=== PATIENT | male | born 1990 ===

== ENCOUNTER 2024-12-16 11:49 | Emergency (ER) | payer OTHER, SELFPAY ==
[2024-12-16 11:54] VITALS: BP 155/85; BMI 36.5
[2024-12-16 12:00] VITALS: BP 136/72
[2024-12-16 12:18] LABS: % Basophils 0.3 % (0-2); % Eosinophils 0.1 % (0-6); % Immature Granulocytes 0.5 % (0-0.5); % Lymphocytes 6.8 % (20.5-51.1); % Monocytes 4.9 % (1.7-9.3); % Neutrophils 87.4 % (42.2-75.2); Absolute Basophils 0.1 10^3/uL (0-0.2); Absolute Immature Granulocytes 0.1 10^3/uL (0-0.05); Absolute Monocytes 0.7 10^3/uL (0.1-0.6); Absolute Neutrophils 13.1 10^3/uL (1.4-6.5); Hematocrit 40.3 % (39.0-52.0); Hemoglobin 14.4 g/dL (13.0-18.0); Mean Corp Hgb Conc. 35.7 g/dL (33.0-37.0); Mean Corpuscular Hgb 29.2 pg (27.0-31.0); Mean Corpuscular Volume 81.7 fL (80.0-94.0); Mean Platelet Volume 9.1 fL (7.4-10.4); Nucleated Red Blood Cells % 0 % (-); Platelet Count 256 10^3/uL (130-400); Red Blood Cell Count 4.93 10^6/uL (4.70-6.10); Red Cell Dist. Width 13.2 % (11.5-14.5)
[2024-12-16 12:28] LABS: ALT (SGPT) 33 U/L (0-50); AST (SGOT) 22 U/L (17-59); Albumin 4.4 g/dl (3.5-5.0); Alkaline Phosphatase 91 U/L (38-126); Blood Urea Nitrogen 11 mg/dl (9-20); Calcium 9.2 mg/dl (8.4-10.2); Carbon Dioxide 26 mmol/L (22-30); Chloride 100 mmol/L (98-107); Estimated Creatinine Clearance > 125 ml/min; Glucose 116 mg/dl (70-99); Lipase 25 U/L (23-300); Potassium 4.2 mmol/L (3.5-5.1); Sodium 137 mmol/L (135-145); Total Bilirubin 0.4 mg/dl (0.2-1.3); Total Protein 7.1 g/dl (6.3-8.2); eGFR > 60.00
[2024-12-16] MEDS: NSS 500 IV (12:35)
[2024-12-16] MEDS: TORADOL 30 MG IV (12:36)
[2024-12-16] MEDS: ZOFRAN 4 MG IV (12:37)
--- NOTE | 2024-12-16 13:34 | ED.GENMED ---
History of Present Illness
General
Chief Complaint: Abdominal Pain
Source: patient
Exam Limitations: none
Time Seen by Provider: 12/16/24 12:09
Nursing documentation reviewed up to this point in time: agreed with
History of Present Illness
History of Present Illness:
Patient presents to ED secondary to right-sided abdominal pain, radiating to his back, with vomiting episodes, shortly after waking up this morning. Abdominal pain described as sharp, without any alleviating or exacerbating factors. Denies trauma.
Denies difficulty with urination. Denies fever or chills. Denies previous history of similar symptoms. There is family history of kidney stones.
Review of Systems
Review of Systems
Allergies reviewed?: Yes
All Other Systems: ROS reviewed and negative except as documented in HPI and ROS
Constitutional: Reports no symptoms; Denies fever
EENT: Reports no symptoms
Respiratory: Reports no symptoms
Cardiac: Reports no symptoms
ABD/GI: Reports abdominal pain, nausea and vomiting; Denies diarrhea
: Reports no symptoms; Denies dysuria, flank pain or difficulty voiding
Musculoskeletal: Reports back pain
Skin: Reports no symptoms
Neurological: Reports no symptoms
Phy Exam
Physical Exam
Physical Exam:
Physical Exam
General: mild painful distress, not acutely ill. afebrile
Head: nc/at. eomi
Neck: supple. normal range of motion
Abdomen: normal bowel sounds. not tender.
Neuro: alert and oriented. no focal neurological deficits
Skin: no rash
Psychiatric: well kept. interactive and cooperative
Extremities: no edema. no calf tenderness.
Course
Orders/Labs/Results
Orders:
Orders
12/16/24 11:59
IV Insert/Care/Rem.- Treatment PRN
12/16/24 12:05
Complete Blood Count/With Diff Urgent
Comprehensive Metabolic Panel Urgent
Lipase Urgent
12/16/24 12:23
0.9% Sodium Chloride 500 ml [Nss] 500 ml IV BOLUS
Ketorolac [Toradol] 30 mg IV NOW STA
Ondansetron Injectable [Zofran] 4 mg IV NOW STA
12/16/24 12:24
CT Abd/pel Without Iv Or Oral Urgent
Comment:
Reason For Exam: right flank pain
Abnormal Lab Results
12/16/24
12:05
WBC 15.0 H 10^3/uL
(4.8-10.8)
Abs Immat Gran (auto) 0.1 H 10^3/uL
(0-0.05)
Absolute Neuts (auto) 13.1 H 10^3/uL
(1.4-6.5)
Absolute Lymphs (auto) 1.0 L 10^3/uL
(1.2-3.4)
Absolute Monos (auto) 0.7 H 10^3/uL
(0.1-0.6)
Neutrophils % 87.4 H %
(42.2-75.2)
Lymphocytes % 6.8 L %
(20.5-51.1)
Glucose 116 H mg/dl
(70-99)
12/16/24 12:05
12/16/24 12:05
Vital Signs
Initial and Last Documented VS:
Initial Vital Signs
Temp Pulse Resp BP Pulse Ox
98 F 105 22 155/85 99
12/16/24 11:54 12/16/24 11:54 12/16/24 11:54 12/16/24 11:54 12/16/24 11:54
Last Documented Vital Signs
Temp Pulse Resp BP Pulse Ox
98 F 88 17 136/72 97
12/16/24 11:54 12/16/24 12:45 12/16/24 12:45 12/16/24 12:00 12/16/24 12:45
MDM/Problems Addressed
MDM/Problems Addressed:
History, exam, and CT scan consistent with renal colic. Patient reports resolution of pain after treatment. Otherwise, patient remains afebrile, hemodynamically stable, and nontoxic-appearing. Patient will be discharged back to [facility] at this time, with recommendation to follow-up with urology upon discharge, or consider return to ED with worsening symptoms, i.e. fever/worsening pain/vomiting/inability to urinate. Patient provided with a urine strainer
prior to discharge.
*Critical Care Note
Total Time (30-74mins, 75-104mins- exclusive of procedures): Not Applicable
ED Attending Note
-
Portions of this chart may have been created with voice recognition software.� Occasional wrong word or��sound alike� substitutions may have occurred due to the inherent limitations of voice recognition software.
Discharge Plan
Departure
Patient Disposition: Jail
Date of Disposition: 12/16/24
Time of Disposition: 13:35
Patient with high blood pressure during this ER visit?: Yes
Discharge Problem:
Renal colic
Instructions: Renal Colic (DC)
Prescriptions:
New
ketorolac 10 mg tablet
10 mg PO Q8H PRN (Reason: Pain) Qty: 12 0RF
Rx Instructions:
maximum total duration of 5 days from all oral, intranasal, or parenteral formulations
Referrals:
[facility] [Family Provider] -
Davin Farias MD [Active] -
Activity Restrictions/Additional Instructions:
As discussed, please follow-up with referred urologist for further evaluation and treatment. In ED, CT scan confirmed obstructing kidney stone, as a cause for your pain. Please consider returning to ED with worsening symptoms, i.e. fever/worsening
pain/inability to urinate.
Interventions
Interventions:
*Risk Screen - Suicide Last Done: 12/16/24 11:54
*General Assessment Last Done: 12/16/24 11:54
*Neglect/Abuse Screening Last Done: 12/16/24 11:54
ED- Fall Risk Assessment Last Done: 12/16/24 13:40
*ED COVID-19 Vaccine History Last Done: 12/16/24 11:54
*Nursing Disposition Last Done: 12/16/24 14:51
VO-Gmqyiz-Kzditcmmgq Assessment Last Done: 12/16/24 13:40
Discharge Date and Time
Discharge Date/Time: 12/16/24 14:51
Print Language: EMIRATI
== END 2024-12-16 14:51 ==
LOC: EMR 11:49
PROVIDERS: EMERGENCY PHYSICIAN Emergency Medicine
DX: N13.2 Hydronephrosis with renal and ureteral calculous obstruction (principal)
CPT/HCPCS: 99284; 96374; 96375; 74176; 80053; 83690; 85025